=== PATIENT | male | born 1975 | race African-American/Black ===

== ENCOUNTER 2023-04-09 08:29 | Emergency (ER) | payer MEDICAID ==
[~2023-04-09] VITALS: Ht 185.4 cm; Wt 68.0 kg
[~2023-04-09 08:29] MED LIST: AMLO10TA80 PO; ASPI-1160 PO; ATOR10TA PO; CLOP-31 PO; COR3 PO
[2023-04-09 08:36] VITALS: BP 108/57; PULSE 74; RESP 18; TEMP 98.7; O2SAT 98
== END 2023-04-09 09:31 | disposition home or self-care (01) ==
LOC: ER 08:40
DX: R05.9 Cough, unspecified (principal); E78.00 Pure hypercholesterolemia, unspecified; I10 Essential (primary) hypertension; E11.9 Type 2 diabetes mellitus without complications; Z86.73 Personal history of transient ischemic attack (TIA), and cerebral infarction without residual deficits
CPT/HCPCS: 99281